=== PATIENT | male | born 1985 | race Caucasian/White ===

== ENCOUNTER 2023-01-18 06:31 | Inpatient (IN) | payer MEDICARE ==
[2023-01-14 17:03] LABS: BASOPHILS % 0.5 % (0.0-1.0); EOSINOPHILS # (AUTO) 0.1 (0.0-0.4); EOSINOPHILS % 1.4 % (0.0-6.0); HEMATOCRIT 46.7 % (38.2-49.6); HEMOGLOBIN 16.1 g/dL (14.0-18.0); LYMPHOCYTES # (AUTO) 2.9 (1.0-3.2); LYMPHOCYTES % 33.6 % (18.0-39.1); MEAN CORPUSCULAR HEMOGLOBIN 29.4 pg (28-32); MEAN CORPUSCULAR HGB CONC 34.5 g/dL (31-35); MEAN CORPUSCULAR VOLUME 85.4 fL (81-99); MONOCYTES # (AUTO) 0.6 (0.2-0.8); NEUTROPHILS # (AUTO) 4.9 (2.1-6.9); NEUTROPHILS % 57.2 % (38.7-80.0); PLATELET COUNT 254 x10e3/uL (140-360); RED BLOOD COUNT 5.47 x10e6/uL (4.3-5.7); RED CELL DISTRIBUTION WIDTH 11.8 % (11.7-14.4)
[2023-01-14 17:20] LABS: ANION GAP 19.4 mmol/L (8-16); CREATININE, SERUM 1.16 mg/dL (0.72-1.25); POTASSIUM 4.4 mmol/L (3.5-5.1)
[~2023-01-18] VITALS: Ht 167.6 cm; Wt 98.0 kg
[~2023-01-18 06:31] MED LIST: BUPROPION HCL100 MG PO; CLOPIDOGREL75 MG PO; FARXIGA5 MG; FLUOXETINE DR90 MG PO; METFORMIN HCL500 MG PO; METOPROLOL ER; PROTONIX20 MG PO; RANOLAZINE ER500 MG; REPATHA PU420 MG/3.5 INJ; ULTRAM 50MG50 MG PO
[2023-01-18] MEDS ORDERED: BUPIVACAINE 0.25% 30ML SDV ONE (06:40)
[2023-01-18] MEDS ORDERED: LACTATED RINGER'S 1,000 ML ONE (06:42)
[2023-01-18] MEDS ORDERED: CEFAZOLIN SODIUM 2 GM ONE (06:42)
[2023-01-18] MEDS ORDERED: FIBRIN FROZEN 2 ML SPRAY.GEL TOP ONE (06:45)
[2023-01-18] MEDS ORDERED: SUGAMMADEX SODIUM 200 MG/2 ML VIAL IV ONE (09:18)
[2023-01-18] MEDS ORDERED: ONDANSETRON HCL INJ 2MG/ML 2ML 2 MG/ML VIAL ONE ×2 (11:10→12:07)
[2023-01-18] MEDS ORDERED: HYDROMORPHONE 1MG/1ML INJ ONE ×2 (11:11→13:14)
[2023-01-18] MEDS ORDERED: Morphine 4mg INJECTION 4 MG/ML INJ ONE ×2 (11:30→11:42)
[2023-01-18] MEDS ORDERED: DEXAMETHASONE SOD PHOS INJ 4 MG/ML SDV ONE (12:07)
[2023-01-18] MEDS ORDERED: PROPOFOL IV EMULSION 10 MG/ML 20 ML VIAL ONE (12:07)
[2023-01-18] MEDS ORDERED: SUCCINYLCHOLINE CHLORIDE 20 MG/ML 10ML VIAL ONE (12:07)
[2023-01-18] MEDS ORDERED: EPHEDRINE SULFATE INJ 50 MG/ML VIAL ONE (12:07)
[2023-01-18] MEDS ORDERED: POVIDONE IODINE 0.05% 0.05 % ML PO ONE (12:07)
[2023-01-18] MEDS ORDERED: LIDOCAINE HCL 2% LOCAL INJ 5 ML SDV VIAL INJ ONE (12:07)
[2023-01-18] MEDS ORDERED: SEVOFLURANE INHAL SOLN 250 ML PEN BTL ONE (12:07)
[2023-01-18] MEDS ORDERED: ROCURONIUM BROMIDE 10 MG/ML 5ML VIAL IV ONE (12:07)
[2023-01-18] MEDS ORDERED: EPINEPHRINE HCL 1:1000 1ML 1 MG/ML AMP ONE (13:07)
[2023-01-18] MEDS ORDERED: BUPIVACAINE HCL 0.5% INJ 30 ML VIAL INJ ONE (13:07)
[2023-01-18] MEDS ORDERED: MIDAZOLAM HCL 2 MG/2 ML VIAL ONE (13:34)
[2023-01-18] MEDS ORDERED: FENTANYL CITRATE/PF 100MCG/2 ML INJ ONE (13:34)
[2023-01-18] MEDS ORDERED: HYDRALAZINE HCL 20 MG/ML VIAL ONE (14:44)
[2023-01-18] MEDS ORDERED: DIPHENHYDRAMINE HCL INJ 50 MG/ML VIAL ONE (14:59)
[2023-01-18 16:03] VITALS: BP 131/78
[2023-01-18] MEDS: ONDANSETRON HCL INJ 2MG/ML 2ML 2 MG/ML VIAL IV PRN (16:26)
[2023-01-18] MEDS: Morphine 2mg Syringe 2 MG/ML SYR IV PRN ×2 (16:26→19:08)
[2023-01-18] MEDS: LACTATED RINGER'S 1,000 ML IV SCH ×3 (16:27→20:13)
[2023-01-18] MEDS ORDERED: BUPROPION HCL150 M2 PO (16:47)
[2023-01-18] MEDS ORDERED: METOPROLOL TAR100 MG PO (16:49)
[2023-01-18] MEDS ORDERED: DEXTROSE 50% SYRINGE 50 ML IV PRN ×2 (17:00→17:15)
[2023-01-18] MEDS ORDERED: SCOPOLAMINE 1 MG PATCH TOP SCH (17:00)
[2023-01-18] MEDS: METOPROLOL TARTRATE 50 MG TAB PO SCH (17:59)
[2023-01-18] MEDS: RANOLAZINE 500 MG TABSR PO SCH (17:59)
[2023-01-18] MEDS: INSULIN REGULAR, HUMAN 100 UNIT/1 ML SQ SCH ×2 (18:10→20:10)
[2023-01-18 18:34] VITALS: BP 131/78
[2023-01-18 18:35] VITALS: BP 131/78
[2023-01-18 20:00] VITALS: BP 109/75
[2023-01-18] MEDS: ENOXAPARIN SOD INJ 40 MG/0.4 ML SYR SC SCH (20:00)
[2023-01-18 21:00] VITALS: BP 109/75
[2023-01-18] MEDS ORDERED: DIPHENHYDRAMINE HCL 25 MG CAP PO PRN (21:00)
[2023-01-18] MEDS ORDERED: DIPHENHYDRAMINE HCL 25 MG CAP PO ONE (21:00)
[2023-01-18] MEDS: HYDROMORPHONE 1MG/1ML INJ IV PRN (23:46)
[2023-01-19] VITALS: BP 117/76
[2023-01-19 04:00] VITALS: BP 123/69
[2023-01-19] MEDS: HYDROCODONE/APAP 7.5MG-325MG 1 EA TAB PO PRN ×2 (06:17→10:44)
[2023-01-19 06:45] LABS: BASOPHILS # (AUTO) 0.1 (0.0-0.1); BASOPHILS % 0.4 % (0.0-1.0); EOSINOPHILS # (AUTO) 0.1 (0.0-0.4); EOSINOPHILS % 0.5 % (0.0-6.0); HEMATOCRIT 45.6 % (38.2-49.6); HEMOGLOBIN 15.1 g/dL (14.0-18.0); LYMPHOCYTES # (AUTO) 2.6 (1.0-3.2); LYMPHOCYTES % 23.7 % (18.0-39.1); MEAN CORPUSCULAR HEMOGLOBIN 30.4 pg (28-32); MEAN CORPUSCULAR HGB CONC 33.1 g/dL (31-35); MEAN CORPUSCULAR VOLUME 91.9 fL (81-99); MONOCYTES % 9.1 % (4.4-11.3); NEUTROPHILS # (AUTO) 7.3 (2.1-6.9); NEUTROPHILS % 65.9 % (38.7-80.0); PLATELET COUNT 248 x10e3/uL (140-360); RED BLOOD COUNT 4.96 x10e6/uL (4.3-5.7); RED CELL DISTRIBUTION WIDTH 12.5 % (11.7-14.4)
[2023-01-19 07:16] LABS: ALBUMIN 3.7 g/dL (3.5-5.0); ALBUMIN/GLOBULIN RATIO 1.1 (0.8-2.0); ANION GAP 19.9 mmol/L (8-16); CALCIUM 9.4 mg/dL (8.4-10.2); CREATININE, SERUM 1.34 mg/dL (0.72-1.25); MAGNESIUM 1.4 MG/DL (1.3-2.1); PHOSPHORUS 2.2 MG/DL (2.3-4.7); POTASSIUM 3.9 mmol/L (3.5-5.1)
[2023-01-19] MEDS: RANOLAZINE 500 MG TABSR PO SCH (08:29)
[2023-01-19] MEDS: ENOXAPARIN SOD INJ 40 MG/0.4 ML SYR SC SCH (08:30)
[2023-01-19] MEDS: METOPROLOL TARTRATE 50 MG TAB PO SCH (08:30)
[2023-01-19 08:31] VITALS: BP 137/93
[2023-01-19] MEDS: HYDROMORPHONE 1MG/1ML INJ IV PRN (08:34)
[2023-01-19] MEDS: ONDANSETRON HCL INJ 2MG/ML 2ML 2 MG/ML VIAL IV PRN (08:34)
[2023-01-19] MEDS: INSULIN REGULAR, HUMAN 100 UNIT/1 ML SQ SCH ×2 (08:42→12:03)
[2023-01-19 09:00] VITALS: BP 137/93
[2023-01-19] MEDS ORDERED: FLUOXETINE HCL 40 MG PO SCH (09:00)
[2023-01-19] MEDS ORDERED: BUPROPION HCL 150 MG TABCR PO SCH (09:00)
[2023-01-19] MEDS ORDERED: MAGNESIUM SULFATE 2GM/50ML 50 ML IV ONE (09:00)
[2023-01-19] MEDS ORDERED: PANTOPRAZOLE SOD 40 MG TABEC PO SCH (09:00)
[2023-01-19] MEDS ORDERED: FLUOXETINE HCL 20 MG CAP PO SCH (09:00)
[2023-01-19] MEDS ORDERED: ONDANSETRON HCL 4 MG ORAL DISINTEGRATING TAB PO PRN (12:30)
[2023-01-19 12:52] VITALS: BP 130/90
== END 2023-01-19 12:10 | disposition home or self-care (01) | DRG 621 ==
LOC: OR 06:31 → PACU V 08:14 → MED/SURG3 15:25
PROVIDERS: ADMIT Internal Medicine; ATTEND Internal Medicine
PROC: 0D164ZA Bypass Stomach to Jejunum, Percutaneous Endoscopic Approach (ICD-10-PCS; principal; 2023-01-18 08:12)
DX: E66.01 Morbid (severe) obesity due to excess calories (principal); Z68.34 Body mass index [BMI] 34.0-34.9, adult; I25.10 Atherosclerotic heart disease of native coronary artery without angina pectoris; E11.69 Type 2 diabetes mellitus with other specified complication; Z79.4 Long term (current) use of insulin; E78.2 Mixed hyperlipidemia; I10 Essential (primary) hypertension; Z20.822 Contact with and (suspected) exposure to COVID-19; F32.9 Major depressive disorder, single episode, unspecified; K21.9 Gastro-esophageal reflux disease without esophagitis
CPT/HCPCS: 0223U; 36415; 71046; 80048; 80053; 82948; 83735; 84100; 85025; 94799; C1713; J0171; J0330; J1100; J1170; J1200; J1650; J2001; J2250; J2270; J2405; J3475